=== PATIENT | female | born 1995 | race African-American/Black ===

== ENCOUNTER 2018-05-04 21:03 | Emergency (ER) | payer BC ==
[~2018-05-04] VITALS: Ht 160 cm; Wt 77.1 kg
[2018-05-04 21:30] VITALS: BP 124/78
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
[2018-05-04] MEDS ORDERED: TYLENOL325 MG ORAL (22:01)
[2018-05-04] MEDS ORDERED: IBUPROFEN600 MG ORAL (22:01)
[2018-05-04 22:10] VITALS: BP 130/80
--- NOTE | 2018-05-04 22:10 | NUR ---
ED Nurse Note: Pt cleared DC by Dr. Jose. Pt is A/Ox4, VSS, DC instruction and prescriptions given, pt verbalized understanding. ID wristband removed. All belongings given to pt. Pt ambulated out of ER with steady gait.
== END 2018-05-04 22:10 | disposition home or self-care (01) ==
LOC: EMR 22:10
DX: S09.90XA Unspecified injury of head, initial encounter (principal); V43.52XA Car driver injured in collision with other type car in traffic accident, initial encounter; Y92.410 Unspecified street and highway as the place of occurrence of the external cause
CPT/HCPCS: 99282